=== PATIENT | male | born 1980 | race Caucasian/White ===

== ENCOUNTER 2016-10-22 15:15 | Emergency (ER) | payer SELFPAY ==
[~2016-10-22] VITALS: Ht 180.3 cm; Wt 70.3 kg
[~2016-10-22 15:15] MED LIST: AGM875T PO; ALPR.5T PO; ALPR1T PO; CEFU250T11 PO; HYDR-3812 PO; HYDR-757 PO; HYDR1TAB85 PO; MELA1TAB9 PO; MELA3TAB36 PO; METR500T PO; ONDA8TAB13 PO; ONDA8TAB9 PO; OXYC-109 PO; OXYC-272 PO; PRD10T PO; PSYL1PAC15 PO; PYRI50CA PO; TRAZ50TA67 PO
--- OUTSIDE RECORDS SUMMARY | 2016-10-22 15:21 | XMS REPORT ---
Author Author YAYA KRUEGER Organization [employer] Address Unknown Phone Unavailable Care Team Providers Care Branch Coordinator Name Role Phone YAYA KRUEGER CP Unavailable Allergies No Known Allergies Problems Problem Type Condition Code Onset Dates Condition Status Problem Panic disorder without agoraphobia 300.01 Active Problem Post-traumatic stress disorder F43.10 Active Problem Establishing care with new doctor, encounter for Z71.89 Active Problem Abdominal pain R10.9 Active Problem Crohns disease with complication, unspecified gastrointestinal tract location K50.919 Active Problem Posttraumatic stress disorder 309.81 Active Problem Attention deficit disorder F90.0 Active Problem Anxiety F41.9 Active Medications Medication Code System Code Instructions Start Date End Date Status Dosage Alprazolam [facility] [address]-99 1 MG Orally 2 times a day 1 tablet as needed Results No Known Results Summary Purpose [employer] Submission
[2016-10-22] MEDS ORDERED: KETOROLAC 30 MG/ML VIAL IVP STA (15:50)
[2016-10-22] MEDS ORDERED: NS IV 1000 ML 1,000 ML IV ONE (15:50)
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
[2016-10-22] MEDS ORDERED: ONDANSETRON 4 MG/2 ML (SDV) Z0FRAN IVP ONE (16:00)
[2016-10-22 16:10] LABS: BASOPHILS % (AUTO) 0 % (0-10); EOSINOPHILS # (AUTO) 0.2 10^3/uL (0.0-0.3); EOSINOPHILS % (AUTO) 3 % (0-10); LYMPHOCYTES # (AUTO) 1.8 X 10^3 (1.0-4.0); LYMPHOCYTES % (AUTO) 27 % (12-44); MEAN CORPUSCULAR HEMOGLOBIN 32 PG (25-34); MEAN CORPUSCULAR HGB CONC 35 G/DL (32-36); MEAN CORPUSCULAR VOLUME 90 FL (80-99); MONOCYTES # (AUTO) 0.6 X 10^3 (0.0-1.0); MONOCYTES % (AUTO) 10 % (0-12); NEUTROPHILS % (AUTO) 61 % (42-75); PLATELET COUNT 257 10^3/uL (130-400); RED BLOOD COUNT 4.51 10^6/uL (4.35-5.85); RED CELL DISTRIBUTION WIDTH 13.1 % (10.0-14.5); WHITE BLOOD COUNT 6.6 10^3/uL (4.3-11.0)
[2016-10-22 16:31] LABS: ALANINE AMINOTRANSFERASE 21 U/L (0-55); ALBUMIN 3.8 G/DL (3.2-4.5); ANION GAP 7 MMOL/L (5-14); ASPARTATE AMINO TRANSFERASE 17 U/L (5-34); BILIRUBIN,TOTAL 0.5 MG/DL (0.1-1.0); BLOOD UREA NITROGEN 7 MG/DL (7-18); BUN/CREATININE RATIO 8; CALCIUM 9.1 MG/DL (8.5-10.1); CARBON DIOXIDE 26 MMOL/L (21-32); CHLORIDE 108 MMOL/L (98-107); CREATININE SERUM 0.83 MG/DL (0.60-1.30); GFR ESTIMATED > 60; GLUCOSE 93 MG/DL (70-105); LIPASE 18 U/L (8-78); SODIUM 141 MMOL/L (135-145); TOTAL PROTEIN 6.2 G/DL (6.4-8.2)
[2016-10-22] MEDS ORDERED: TRAM50TA2 PO (17:06)
[2016-10-22] MEDS ORDERED: ONDA8TAB13 PO (17:06)
[2016-10-22] MEDS ORDERED: PRD10T PO (17:06)
[2016-10-22 17:47] LABS: BILIRUBIN,URINE NEGATIVE (NEGATIVE); KETONES,URINE NEGATIVE (NEGATIVE); LEUKOCYTE ESTERASE ,URINE NEGATIVE (NEGATIVE); NITRITE,URINE NEGATIVE (NEGATIVE); PH,URINE 6.5 (5-9); PROTEIN,URINE NEGATIVE (NEGATIVE); SQUAMOUS EPITHELIAL CELL,UR RARE /HPF; UROBILINOGEN,URINE NORMAL (NORMAL)
[2016-10-22 17:56] VITALS: BP 128/84
== END 2016-10-22 17:56 | disposition home or self-care (01) ==
LOC: EDUNIT# 15:15 → ER 15:16
DX: K52.9 Noninfective gastroenteritis and colitis, unspecified (principal); F17.210 Nicotine dependence, cigarettes, uncomplicated
CPT/HCPCS: 36415; 80053; 81000; 83690; 85025; 96361; 96374; 96375